=== PATIENT | female | born 2000 | race Caucasian/White ===

== ENCOUNTER 2019-08-03 19:19 | Emergency (ER) | payer OTHER ==
[~2019-08-03] VITALS: Ht 160 cm; Wt 70.4 kg
[2019-08-03 19:43] VITALS: Ht 160 cm; Wt 70.4 kg
[2019-08-03 20:11] VITALS: BP 106/59
== END 2019-08-03 20:11 | disposition home or self-care (01) ==
LOC: ED 19:19
DX: R05 Cough (principal); R09.89 Other specified symptoms and signs involving the circulatory and respiratory systems